=== PATIENT | female | born 1940 | race Caucasian/White ===

== ENCOUNTER 2020-12-27 13:23 | Inpatient (IN) | payer OTHER ==
[~2020-12-27] VITALS: Ht 165.1 cm; Wt 91.6 kg
[~2020-12-27 13:23] MED LIST: ARAVA20 MG PO; AUGMENTIN 875-1 EACH; CIPRO250 M2 PO; COREG12.5 MG PO; COZAAR 50 MG TA50 M1 PO; FOLIC ACID1 MG PO; LASIX 40 MG TAB40 M2 PO; MIRALAX17 GM PO; POTASSIUM CITR15 MEQ PO; PREDNISONE 5 MG5 M1 PO; TRAMADOL 50 MG50 MG PO; WELLBUTRIN SR150 MG PO
[2020-12-27 13:25] VITALS: BP 130/65
[2020-12-27] MEDS ORDERED: RINVOQ ER15 MG PO (13:37)
[2020-12-27] MEDS ORDERED: PROLIA60 MG/1 ML SUBQ (13:37)
[2020-12-27] MEDS ORDERED: CALCIUM + D3 E1 EACH PO (13:37)
[2020-12-27] MEDS ORDERED: LEXAPRO5 MG PO (13:37)
[2020-12-27] MEDS ORDERED: MAGNESIUM250 M1 PO (13:38)
[2020-12-27] MEDS ORDERED: GABAPENTIN100 MG PO (13:38)
[2020-12-27] MEDS ORDERED: PRESERVISION A1 EAC2 PO (13:38)
[2020-12-27 14:02] LABS: ABSOLUTE LYMPHOCYTES 0.6 thou/uL (0.8-5.3); ABSOLUTE MONOCYTES 0.8 thou/uL (0.0-1.2); ABSOLUTE NEUTROPHILS 6.3 thou/uL (1.6-8.1); BASOPHILS 0.4 %; EOSINOPHILS 0.4 %; HEMATOCRIT 25.9 % (37.0-47.0); HEMOGLOBIN 8.3 gm/dL (12.0-15.0); LYMPHOCYTES 7.7 %; MCH 27.1 pg (26.0-34.0); MCHC 32.2 g/dL (28.0-37.0); MCV 84.2 fL (80.0-100.0); MONOCYTES 9.9 %; MPV 7.2 fl. (7.2-11.1); NUCLEATED RBCS 0 /100WBC; PLATELET COUNT* 289 thou/uL (150-400); POLYS 81.6 %; RBC 3.08 mil/uL (4.20-5.00); RDW-CV 17.4 % (10.5-14.5); WBC 7.8 thou/uL (4.0-11.0)
[2020-12-27 14:12] LABS: CALCIUM 8.2 mg/dL (8.5-10.1); CREATININE 1.9 mg/dL (0.6-1.3); POTASSIUM 4.1 mmol/L (3.5-5.1)
[2020-12-27 14:22] LABS: ALBUMIN 2.7 g/dL (3.4-5.0); TOTAL BILIRUBIN 0.8 mg/dL (<0.1-1.0); TOTAL PROTEIN 6.2 g/dL (6.4-8.2)
--- NOTE | 2020-12-27 14:25 | EKG ---
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
[2020-12-27 15:33] LABS: URINE BILIRUBIN NEGATIVE (Negative); URINE BLOOD NEGATIVE (Negative); URINE CLARITY CLEAR; URINE COLOR YELLOW; URINE GLUCOSE-RANDOM NEGATIVE (Negative); URINE KETONES NEGATIVE (Negative); URINE NITRITE-REFLEX NEGATIVE (Negative); URINE PROTEIN NEGATIVE (Negative); URINE UROBILINOGEN 0.2 E.U./dl (0.2-1.0)
[2020-12-27 15:34] LABS: URINE LEUKOCYTES-REFLEX 2+ (Negative)
[2020-12-27 15:43] LABS: BACTERIA-REFLEX >30 Many /HPF (None Seen); CASTS None Seen /LPF (None Seen); CRYSTALS None Seen /LPF (None Seen); MUCUS None Seen strn/LPF (None Seen); SQUAMOUS >10 Many /LPF (0-3)
[2020-12-27 15:44] LABS: URINE RBC 0-2 Rare /HPF (0-2); URINE WBC-REFLEX >25 Many /HPF (0-5)
[2020-12-27 18:11] VITALS: BP 116/45
[2020-12-27 20:40] VITALS: BP 104/37
[2020-12-27] MEDS ORDERED: REFRESH CELLUVI1 APP OPHTHALMIC (21:48)
[2020-12-28 07:15] LABS: CALCIUM 7.8 mg/dL (8.5-10.1); CREATININE 1.5 mg/dL (0.6-1.3); POTASSIUM 3.7 mmol/L (3.5-5.1)
[2020-12-28 07:19] LABS: MAGNESIUM 2.2 mg/dL (1.8-2.4); PHOSPHORUS* 2.8 mg/dL (2.5-4.9)
[2020-12-28 16:30] VITALS: BP 135/52
--- NOTE | 2020-12-28 16:31 | 2DMMODE ---
[place] [address] 2 D/M-MODE ECHOCARDIOGRAM Name: MARVA JONES Room: [address] ADM [place] ..#: [id number] Admission: 12/27/20 Attend Phys: Ernesto Polo Discharge: Date of : 44 Date of Service: 12/28/20 1631 Report #: [id number] THIS REPORT FOR: cc: Kierra Adair,Kierra Watters,Raoul Werner MD [facility] ~ APPROVED REPORT Study performed: 12/28/2020 14:52:55 EXAM: Comprehensive 2D, Doppler, and color-flow Echocardiogram Patient Location: In-Patient Room #: [facility] Status: routine BSA: 1.99 HR: 67 bpm BP: 104/37 mmHg Rhythm: NSR Other Information Study Quality: Good Indications Dyspnea 2D Dimensions IVSd: 12.61 (7-11mm) LVOT Diam: 19.37 (18-24mm) LVDd: 49.20 mm PWd: 11.31 (7-11mm) Ascending Ao: 30.22 (22-36mm) LVDs: 22.85 (25-40mm) Aortic Root: 28.83 mm Volumes Left Atrial Volume (Systole) LA ESV Index: 43.00 mL/m2 Aortic Valve AoV Peak Micky.: 1.70 m/s AO Peak Gr.: 11.50 mmHg LVOT Max P.47 mmHg AO Mean Gr.: 6.73 mmHg LVOT Mean P.85 mmHg LVOT Max V: 0.93 m/s AO V2 VTI: 34.59 cm LVOT Mean V: 0.63 m/s MARY (VTI): 1.77 cm2 LVOT V1 VTI: 20.72 [place] [address] 2 D/M-MODE ECHOCARDIOGRAM Name: MARVA JONES Room: [address] [place] .R.#: [id number] Admission: 12/27/20 Attend Phys: Ernesto Polo Discharge: Date of : 44 Date of Service: 12/28/20 1631 Report #: [id number] Mitral Valve MV Mean Gr.: 4.08 mmHg E/A Ratio: 1.08 MV Decel. Time: 229.85 ms MV E Max Micky.: 1.42 m/s MV PHT: 66.66 ms MVA (PHT): 3.30 cm2 TDI E/Lateral E': 14.20 Lateral E' Micky.: 0.10 m/s Pulmonary Valve PV Peak Micky.: 1.14 m/s PV Peak Gr.: 5.17 mmHg Tricuspid Valve RAP Estimate: 5.00 mmHg TR Peak Gr.: 33.85 mmHg RVSP: 38.00 mmHg PA Pressure: 38.00 mmHg Left Ventricle The left ventricle is normal size. There is normal LV segmental wall motion. Mild concentric left ventricular hypertrophy. Left ventricular systolic function is normal. The left ventricular ejection fraction is within the normal range. LVEF is 55-60%. The left ventricular diastolic function is normal. Right Ventricle The right ventricle is normal size. The right ventricular systolic function is normal. Atria Left atrium is moderately dilated. The right atrium size is normal. Aortic Valve Mild aortic valve sclerosis. No aortic regurgitation is present. There is no aortic valvular stenosis. Mitral Valve There is mitral annular calcification. The mitral valve is normal in structure. Mild mitral regurgitation. Mild mitral stenosis. Tricuspid Valve The tricuspid valve is normal in structure. Trace tricuspid regurgitation. estimated pa pressure 40 [place] [address] 2 D/M-MODE ECHOCARDIOGRAM Name: MARVA JONES Room: [address] [place] [facility]#: [id number] Admission: 12/27/20 Attend Phys: Ernesto Polo Discharge: Date of : 44 Date of Service: 12/28/20 1631 Report #: [id number] Pulmonic Valve Pulmonic valve is not well visualized. Trace pulmonic regurgitation. Great Vessels The aortic root is normal in size. IVC is normal in size and collapses >50% with inspiration. Pericardium There is no pericardial effusion. <Conclusion> Mild concentric left ventricular hypertrophy. LVEF is 55-60%. Left atrium is moderately dilated. Mild aortic valve sclerosis. Mild mitral regurgitation. Trace tricuspid regurgitation. estimated pa pressure 40 mm Hg <ELECTRONICALLY SIGNED> By: Raoul Weber MD, FACC 12/28/20 163 30 30 Raoul Weber MD, FACC /INF
== END 2020-12-28 18:00 | disposition short-term general hospital (02) | DRG 542 ==
LOC: M.ERS 13:23 → M.3W 15:36 → M.TBA-ER 15:36 → M.3W 17:54
PROVIDERS: Physician Assistant; ADMIT Internal Medicine; ATTEND Internal Medicine
DX: M80.08XA Age-related osteoporosis with current pathological fracture, vertebra(e), initial encounter for fracture (principal); I50.33 Acute on chronic diastolic (congestive) heart failure; N17.9 Acute kidney failure, unspecified; I42.9 Cardiomyopathy, unspecified; I13.0 Hypertensive heart and chronic kidney disease with heart failure and stage 1 through stage 4 chronic kidney disease, or unspecified chronic kidney disease; N10 Acute pyelonephritis; E87.1 Hypo-osmolality and hyponatremia; F32.9 Major depressive disorder, single episode, unspecified; Z20.822 Contact with and (suspected) exposure to COVID-19; N18.9 Chronic kidney disease, unspecified; E78.5 Hyperlipidemia, unspecified; Z66 Do not resuscitate; M06.9 Rheumatoid arthritis, unspecified; Z88.6 Allergy status to analgesic agent; Z88.2 Allergy status to sulfonamides; Z88.8 Allergy status to other drugs, medicaments and biological substances; I16.0 Hypertensive urgency; D63.8 Anemia in other chronic diseases classified elsewhere